=== PATIENT | female | born 1960 | race Caucasian/White ===

== ENCOUNTER → 2017-04-09 | Outpatient (CLI) | payer BC ==
[~2017-04-09] MED LIST: GABAPENTIN300 MG PO; LEVOTHYROXINE50 MCG PO; NORCO 7.5-3251 EACH PO
--- NOTE | 2017-04-09 16:28 | Diagnostic Imaging Report ---
EXAM: DXA BONE DENSITY INDICATIONS: AGE RELATED OSTEOPORSIS COMPARISON: None. FINDINGS: Proximal left femur neck bone mineral density (BMD) (g/cm2):0.537 Femur T-score (standard deviation relative to young adult mean BMD): -2.8 Femur Z-score (standard deviation relative to age-matched control group):-1.7 Proximal left femur total bone mineral density (BMD) (g/cm2):0.652 Femur T-score (standard deviation relative to young adult mean BMD): -2.4 Femur Z-score (standard deviation relative to age-matched control group):-1.6 Lumbar bone mineral density (BMD) (g/cm2):0.860 Lumbar T-score (standard deviation relative to young adult mean BMD): -1.7 Lumbar Z-score (standard deviation relative to age-matched control group):-0.5 Change since prior exam (%): Femur:Not applicable. Spine:Not applicable. Change since oldest prior exam (%): Femur:Not applicable. Spine:Not applicable. CONCLUSION: 1. Bone mineral density in the left femur is classified as osteoporosis. Fracture risk is high. 2. Bone mineral density in the spine is classified as osteopenia. Fracture risk is moderate. World Health Organization Classification: *The Z-score is provided for informational purposes. The T-score is preferable for clinical decisions. When comparing exams, a change of >4% is considered statistically significant. SUGGESTED RECOMMENDATIONS: Normal \T\ Osteopenia:Consideration should be given to use of calcium supplementation, daily multiple vitamins and adequate exercise, as preventive measures against osteoporosis, if clinically indicated. Osteoporosis \T\ Severe Osteoporosis:In addition to the above, consideration should be given to medical therapy against osteoporosis, if clinically indicated. Dictated by: Luis E Hastings M.D. on 04/09/2017 at 16:37 Electronically approved by: Luis E Hastings M.D. on 04/09/2017 at 16:37
== END ==
LOC: DX 12:56
PROVIDERS: ATTEND Internal Medicine
DX: M81.0 Age-related osteoporosis without current pathological fracture (principal)
CPT/HCPCS: 77080

== ENCOUNTER 2020-12-11 10:43 | Emergency (ER) | payer BC ==
[~2020-12-11] VITALS: Ht 167.6 cm; Wt 56.7 kg
[2020-12-11] MEDS ORDERED: CASIRIVIMAB/IMDEVIMAB 10 ML in SODIUM CHLORIDE 0.9% 100 ML IV ONE (11:15)
== END 2020-12-11 12:12 | disposition home or self-care (01) ==
LOC: ER 10:56
DX: U07.1 COVID-19 (principal); E03.9 Hypothyroidism, unspecified
CPT/HCPCS: 99284